=== PATIENT | male | born 1965 | race Caucasian/White ===

== ENCOUNTER 2017-12-23 05:54 | Day surgery (SDC) | payer OTHER, SELFPAY ==
[2017-12-23] VITALS (7 sets, daily range): BP systolic 118–130; BP diastolic 68–89; PULSE 55–68; RESP 16; TEMP 36.4–36.7; O2SAT 94–100; BMI 34.7
--- NOTE | 2017-12-23 | COLBX_PTH ---
PATIENT: SARAH PACK LOC: EN U#:[id number] AGE/SX: 52/M ROOM: RE12/23/[address]: Dr. Clarence Wells MD : 1965 BED: DIS: 12/23/2017 SPEC #: [id number] RECD: 12/23/17 14:20 STATUS: JOSY MARGARITO #: [id number] DARRIAN: 12/23/17 00:[address]: Clarence Wells DEPT: SURGICAL PATHOLOGY RECD BY: Vic Quinones ENTERED: 12/26/17 08:38 SP TYPE: COLON BX OTHR DR: Dr. Bo Eastman MD Tissues: Sigmoid colon biopsy Procedures: Surgery Specimen Level IV HEADER OPERATION: Colonoscopy PRE-OP DIAGNOSIS: Anal-rectal pain TISSUE SUBMITTED: Distal sigmoid polyp MICROSCOPIC DIAGNOSIS Distal sigmoid polyp, biopsy: Fragments of tubular adenoma. SJ:dodie 12/27/17 MICROSCOPIC DESCRIPTION Slides are reviewed. GROSS DESCRIPTION Received in fixative is one container labeled with the patient's name and designated distal sigmoid polyp. The specimen consists of three irregular fragments of light montgomery soft tissue that in aggregate measure 0.3 x 0.3 x 0.1 cm. The specimen is totally submitted in one cassette. / SJ:dodie 12/26/17 TC:1 CPT: 06617
--- NOTE | 2017-12-23 08:00 | FIS_PTH ---
PATIENT: SARAH PACK LOC: EN U#:[id number] AGE/SX: 52/M ROOM: RE12/23/[address]: Dr. Clarence Wells MD : 1965 BED: DIS: 12/23/2017 SPEC #: [id number] RECD: 12/23/17 10:28 STATUS: JOSY MARGARITO #: [id number] DARRIAN: 12/23/17 08:[address]: Clarence Wells DEPT: SURGICAL PATHOLOGY RECD BY: Lorenzo Porter ENTERED: 12/23/17 11:43 SP TYPE: FISSURE OTHR DR: Dr. Bo Eastman MD Tissues: A - Anal region B - HEMORRHOIDS Procedures: Surgery Specimen Level III HEADER OPERATION: EUA, posterior anal fissurectomy, hemorrhoidectomy PRE-OP DIAGNOSIS: Anal/rectal pain; posterior fissure with hemorrhoid TISSUE SUBMITTED: A ? Anal fissure, B ? Hemorrhoid MICROSCOPIC DIAGNOSIS A. Anal fissure, fissurectomy: Fragments of squamoglandular epithelium with mild chronic inflammation, hyperkeratosis and parakeratosis and submucosal vascular ectasia. B. Hemorrhoid, hemorrhoidectomy: Submucosal vascular ectasia and thrombosis consistent with hemorrhoid. AM:dodie 12/26/17 COMMENT A. The findings are consistent with anal fissure. MICROSCOPIC DESCRIPTION Slides are reviewed. GROSS DESCRIPTION A - Received in fixative is one container labeled with the patient's name and designated anal fissure. The specimen consists of two irregular fragments of glistening, montgomery mucosa with attached hemorrhagic submucosal tissue that in aggregate measure 2.5 x 1 x 0.6 cm. The larger fragment is bisected and submitted along with the smaller fragment in one cassette. B - Received in fixative is one container labeled with the patient's name and designated hemorrhoid. The specimen consists of smooth, glistening mucosa with attached hemorrhagic submucosal tissue measuring 5 x 2 x 1 cm. Certified Nuclear Medicine Technologist sections are submitted in one cassette. / AM:dodie 12/23/17 TC:3 CPT: 02794 x2
[2017-12-23] MEDS: Dibucaine 30 GM Tube 1 APPLIC (08:57)
[2017-12-23] MEDS: Bupivacaine Mpf 0.5% 30 ML VIAL (08:57)
[2017-12-23] MEDS: BUPIVACAINE LIPOSOME/PF 20 ML VIAL OPERA.SITE (08:57)
--- NOTE | 2017-12-23 09:06 | DCINST_ITS ---
Discharge Diet: No Restrictions Discharge Activity: Return to Normal Activity, May Not Drive - while you are taking narcotic pain medications. Do not drive, work with heavy equipment or sign legal documents for 24 hours after your surgery. Additional Activity Instructions:: You may perform sitz baths in a warm tub of soapy water for 20 minutes as needed for comfort or hygiene. Mineral oil 30 cc or 1 ounce in juice or fluid daily for 1 week. Daily fiber supplementation Metamucil or similar product 1 heaping tablespoon in with fluid daily. You may utilize any [id number] pain medicine per package instructions. Additional Dressing/Incision Instructions:: You may remove the Vaseline gauze dressing at the next bowel movement. You may utilize dry pads as needed for comfort and leakage. You may utilize the dibucaine ointment every 4 hours as needed for comfort Allergies/Adverse Reactions: Allergies No Known Allergies Allergy (Verified 11/30/17 16:43) Medications to take at Discharge hydrocortisone acetate 25 mg rectal suppository 25 mg RC QDAY 11/30/17 Hydrocodone Bitart/Apap 5-325 [[place] 5MG-325MG] 1 tablet PO Q4H PRN PRN 5 Days # 20 tablet 12/23/17 Metronidazole [Flagyl] 500 mg PO Q8H #15 tab 12/23/17 Psyllium [Metamucil] 1 packet PO DAILY #30 packet 12/23/17 The following prescriptions were given: Hydrocodone Bitart/Apap 5-325 [[place] 5MG-325MG] 1 tablet PO Q4H PRN PRN 5 Days # 20 tablet PRN Reason: Pain Metronidazole [Flagyl] 500 mg PO Q8H #15 tab Psyllium [Metamucil] 1 packet PO DAILY #30 packet Primary Care Physician: Bo Eastman MD [Primary Care Provider] - Test Results: Test results from this visit will be discussed in further detail at your follow- up appointment, if applicable. Please Follow Up With: Clarence Wells MD - [phone] When: Plan to have a follow up approximately 3 weeks after surgery.
--- NOTE | 2017-12-23 09:06 | PCM.OPRPT ---
Problem List (1) Anal fissure Status: Acute Report of Operation Date of Procedure: 12/23/17 Pre-Operative Diagnosis: Anorectal pain, suspected anal fissure, hemorrhoids Post-Operative Diagnosis: Sessile polyp of the distal sigmoid, pancolonic scattered diverticulosis. Posterior anal fissure, grade 3 internal hemorrhoids Surgery/Procedure Performed:: Colonoscopy with hot snare polypectomy. Examination under anesthesia with posterior anal fissurectomy and hemorrhoidectomy Description of Surgical Findings:: Timeout and informed consent was obtained. 52-year-old gentleman was taken to the operating room. He underwent monitored anesthesia care. He was placed in a left lateral decubitus position. Digital rectal exam performed. Hemorrhoidal changes noted. 2+ smooth prostate. Flexible colonoscope inserted the rectum and readily advanced to the colon. Some minimal transabdominal pressure was required to get the scope to go to the cecum. Bowel prep was adequate there is still some liquid stool but that could be aspirated free. The cecum ileocecal valve was nicely achieved. The scope was carefully withdrawn from the cecum ascending colon transverse colon descending colon and sigmoid colon. Minimal scattered diverticulosis identified. No evidence of acute inflammatory change. In the very distal sigmoid colon at approximately 15 cm a 7 mm diameter sessile polyp was identified. A hot snare with blend setting was used to resect and retrieved. Hemostasis was intact. The scope was retroflexed in the rectum and the exuberant grade 3 internal hemorrhoids noted. No active bleeding at that time. Excess fluid and air was aspirated free the procedure was completed with patient tolerating it well. He was then placed prone on the operating table. Careful shoulder chest rolls kneepads were placed. He was placed in a jackknife position. The perianal area was prepped with Betadine. Inspection revealed a posterior anal fissure. There was exuberant hemorrhoidal tissue particularly anteriorly. The fissure was sharply excised with a combination of sharp scalpel excision and harmonic excision. The most mucosa was approximated with a running 2-0 chromic. There was bulky anterior hemorrhoidal disease. This was treated with an apical suture of 0 chromic and then an apical suture of 2-0 chromic. Harmonic Scalpel was used to excise this exuberant tissue. On both excisions the anal sphincter was identified and carefully protected. The mucosa was then approximated with a running locking 2-0 chromic. This eradicated the vast majority the patient's bulky disease. I elected because of the fissure not to take more exuberant hemorrhoid tissue as I felt that that would inhibit posterior fissure healing. It is of note that prior to embarking upon this procedure 0.5% Marcaine was used as local anesthetic. A total 30 cc was utilized. At the completion of the procedure 20 cc of Exparel was injected. Dibucaine soaked Vaseline gauze was inserted. Dry cover dressings were applied. Specimens include the distal sigmoid polyp and the posterior anal fissure in the anterior hemorrhoid. Drains none. Blood loss minimal. Impression Small sessile polyp in the distal sigmoid. Final pathology pending. This is the patient's initial screening colonoscopy. Follow-up colonoscopy anticipated in no greater than 5 years pending pathology results. The patient will have surgical follow-up regarding his anal fissure. The colonoscopy was initiated at 0800. The cecum was reached at 0805. The procedure was completed at 0816. Clarence Wells M.D., F.A.C.S. Type of Anesthesia:: Local MAC
== END 2017-12-23 10:26 | disposition home or self-care (01) ==
LOC: EN 05:55 → AC 05:58
PROVIDERS: Family Provider Family Medicine; PCP Family Medicine; Visit Provider Surgery
PROC: (CPT 45385; 2017-12-23 07:45)
DX: Z12.11 Encounter for screening for malignant neoplasm of colon (principal); K60.2 Anal fissure, unspecified; K64.8 Other hemorrhoids; K57.30 Diverticulosis of large intestine without perforation or abscess without bleeding; K63.5 Polyp of colon; G47.30 Sleep apnea, unspecified; M51.36 Other intervertebral disc degeneration, lumbar region
CPT/HCPCS: 45385; 46257; 88304; 88305; J7120

== ENCOUNTER → 2020-12-30 10:38 | Outpatient (CLI) | payer OTHER, SELFPAY ==
[2017-12-23 06:17] VITALS: BMI 34.7
[2020-12-30 12:11] LABS: Absolute Lymphocyte Count 1.54 X10^3/uL (0.83-4.51); Absolute Neutrophil Count 3.7 X10^3/uL (2.0-7.7); Basophil# 0.05 X10^3/uL; Basophil% 0.8 % (0-1); Eosinophil# 0.18 X10^3/uL; Eosinophils% 2.9 % (0-5); Hematocrit 45.9 % (40-54); Hemoglobin 15.2 g/dL (13.0-16.5); Lymphocyte # 1.54 X10^3/ul (0.83-4.51); Lymphocyte % 25.1 % (19-41); Mean Corp Hgb Conc 33.1 g/dL (32-36); Mean Corpuscular Volume 90.7 fL (80-94); Mean Platelet Vol. 9.8 fl (6.2-12.0); Monocyte# 0.61 X10^3/uL; NRBC Flagged by Analyzer 0 % (0-5); Neutrophil # 3.73 X10^3/uL (2.7-7.7); Neutrophil % 60.9 % (47-70); Platelet Count 213 K/mm3 (150-450); RBC Distribution Width CV 12.3 % (11.6-14.6); RBC Distribution Width SD 40.8 fl (35.1-43.9); Red Blood Count 5.06 M/mm3 (4.6-6.2); White Blood Count 6.1 K/mm3 (4.4-11.0)
[2020-12-30 12:42] LABS: Anion Gap 2 (5-15); BUN 16 mg/dL (7-18); BUN/Creat Ratio 17.9 RATIO (10-20); Calcium,Total 8.8 mg/dL (8.5-10.1); Chloride 106 mmol/L (98-107); Cholesterol 202 mg/dL (200); Creatinine, Serum 0.89 mg/dL (0.70-1.30); EST Glomerular Filtration Rate 95 mL/min (>60); Est Glom Filt Rate - Afr Amer 115 mL/min (>60); Glucose 87 mg/dL (74-106); High Density Lipoprotein 49 mg/dL; PSA,Total - Annual Screen 1.69 ng/mL (0.00-4.00); Potassium 4.3 mmol/L (3.5-5.1); Sodium Level 137 mmol/L (136-145); Triglycerides 136 mg/dL; Very Low Density Lipoprotein 27 mg/dL (5-40)
== END ==
PROVIDERS: PCP Family Medicine; Referring Provider Family Medicine; Visit Provider Nurse Practitioner Family
DX: Z00.00 Encounter for general adult medical examination without abnormal findings (principal)
CPT/HCPCS: 36415; 80048; 80061; 84153; 85025; G0103